=== PATIENT | male | born 1975 ===

== ENCOUNTER → 2019-05-02 16:43 | Outpatient (ROUT) | payer BC, SELFPAY | PROVIDERS: Family Provider Internal Medicine; PCP Internal Medicine; Visit Provider Internal Medicine | DX: L08.9 Local infection of the skin and subcutaneous tissue, unspecified (principal) | CPT/HCPCS: 87070; 87075; 87077; 87186; 87205 ==

== ENCOUNTER → 2019-06-18 16:06 | Outpatient (ROUT) | payer BC, SELFPAY ==
[2019-06-21 12:06] LABS: Testosterone Free 13.4 pg/mL (35.0-155.0); Testosterone Total 91 ng/dL (250-1100)
== END ==
PROVIDERS: Family Provider Internal Medicine; PCP Internal Medicine; Visit Provider Internal Medicine
DX: N52.1 Erectile dysfunction due to diseases classified elsewhere (principal)
CPT/HCPCS: 84402; 84403

== ENCOUNTER → 2019-10-23 15:04 | Outpatient (ROUT) | payer BC, SELFPAY ==
[2019-10-23 15:22] LABS: Hemoglobin A1C% w Est Avg Glu 7.4 % (4.0-6.0)
[2019-10-23 15:58] LABS: Alanine Aminotransferase 23 IU/L (<50); Albumin 4.1 g/dL (3.5-5.0); Albumin Globulin Ratio 1.6 (1.0-2.8); Alkaline Phosphatase 78 U/L (38-126); Aspartate Aminotransferase 23 IU/L (17-59); BUN Creatinine Ratio 26.7 (6-22); Bilirubin Total 0.3 mg/dL (0.2-1.3); Blood Urea Nitrogen 16 mg/dL (9-20); Carbon Dioxide 24 mmol/L (22-32); Chloride 101 mmol/L (98-107); Cholesterol 139 mg/dL (140-199); Estimated Glomerular Filt Rate > 60.0 mL/min (>60); Globulin 2.6 g/dL (1.7-4.1); Glucose 282 mg/dL (70-100); HDL Cholesterol 26 mg/dL (40-60); HEMOLYSIS 22 (0-50); LDL Cholesterol Calculated 74 mg/dL (<100); Sodium 137 mmol/L (137-145); Total Protein 6.7 g/dL (6.3-8.2); Triglycerides 196 mg/dL (35-150)
[2019-10-23 16:03] LABS: Potassium 5.4 mmol/L (3.4-5.1)
[2019-10-28 13:19] LABS: Testosterone Free 8.3 pg/mL (35.0-155.0); Testosterone Total 47 ng/dL (250-1100)
== END ==
PROVIDERS: Family Provider Internal Medicine; PCP Internal Medicine; Visit Provider Internal Medicine
DX: E29.1 Testicular hypofunction (principal); E11.8 Type 2 diabetes mellitus with unspecified complications; I10 Essential (primary) hypertension; E78.5 Hyperlipidemia, unspecified
CPT/HCPCS: 80053; 80061; 83036; 84402; 84403